=== PATIENT | male | born 2000 | race Caucasian/White ===

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

== ENCOUNTER 2018-06-16 12:23 | Emergency (ER) | payer BC ==
--- NOTE | 2018-06-16 12:57 | ER Document Report ---
ED Medical Screen (RME) - General Chief Complaint: Psych Problem Stated Complaint: PSYCH Time Seen by Provider: 06/16/18 12:52 Notes: 17 years old male with a history of depression and suicidal attempt, not taking any medications for 1 year, presents today with feeling depressed, living on a truck. No home. TRAVEL OUTSIDE OF THE [place] IN LAST 30 DAYS: No - Related Data Allergies/Adverse Reactions: No Known Allergies Allergy (Verified 06/16/18 12:30) Past Medical History Renal/ Medical History: Denies: Hx Peritoneal Dialysis Physical Exam - Vital signs Vitals: Temp Pulse Resp BP Pulse Ox 98.3 F 84 16 132/73 H 97 06/16/18 12:35 06/16/18 12:35 06/16/18 12:35 06/16/18 12:35 06/16/18 12:35 Course - Vital Signs Vital signs: Temp Pulse Resp BP Pulse Ox 98.3 F 84 16 132/73 H 97 06/16/18 12:35 06/16/18 12:35 06/16/18 12:35 06/16/18 12:35 06/16/18 12:35
[2018-06-16 13:54] LABS: ABSOLUTE LYMPHOCYTES (AUTO) 1.3 10^3/uL (0.5-4.7); ABSOLUTE MONOCYTES (AUTO) 0.6 10^3/uL (0.1-1.4); ABSOLUTE NEUT (AUTO) 6.8 10^3/uL (1.7-8.2); BASOPHILS % (AUTO) 0.2 % (0-2); EOSINOPHILS % (AUTO) 0.4 % (0-6); HEMATOCRIT 47.2 % (37.9-51.0); HEMOGLOBIN 16.4 g/dL (13.5-17.0); LYMPHOCYTES % (AUTO) 15.3 % (13-45); MEAN CORPUSCULAR HEMOGLOBIN 30.6 pg (27.0-33.4); MEAN CORPUSCULAR HGB CONC 34.7 g/dL (32.0-36.0); MEAN CORPUSCULAR VOLUME 88 fl (80-97); MONOCYTES % (AUTO) 7.2 % (3-13); PLATELET COUNT 263 10^3/uL (150-450); RED BLOOD COUNT 5.36 10^6/uL (4.35-5.55); RED CELL DISTRIBUTION WIDTH 12.8 % (11.5-14.0); SEGMENTED NEUTROPHILS % (AUTO) 76.9 % (42-78); TOTAL CELLS COUNTED % (AUTO) 100 %; WHITE BLOOD COUNT 8.8 10^3/uL (4.0-10.5)
[2018-06-16 14:02] LABS: APPEARANCE,URINE SLIGHTLY-CLOUDY; BILIRUBIN,URINE NEGATIVE (NEGATIVE); COLOR,URINE YELLOW; GLUCOSE, URINE NEGATIVE (NEGATIVE); KETONES,URINE NEGATIVE (NEGATIVE); LEUKOCYTE ESTERASE,URINE LARGE (NEGATIVE); NITRITE,URINE NEGATIVE (NEGATIVE); PROTEIN,URINE NEGATIVE (NEGATIVE); URINE SPECIFIC GRAVITY 1.014; UROBILINOGEN,URINE NEGATIVE mg/dL (<2.0)
[2018-06-16 14:12] LABS: ACETAMINOPHEN < 10 ug/mL (10-30); ALANINE AMINOTRANSFERASE 21 U/L (10-40); ALBUMIN 5.1 g/dL (3.7-5.6); ALCOHOL < 10 mg/dL (NONE DETECTED); ALKALINE PHOSPHATASE 64 U/L (65-260); ANION GAP 13 (5-19); ASPARTATE AMINO TRANSFERASE 21 U/L (10-45); BILIRUBIN,DIRECT 0.3 mg/dL (0.0-0.4); BILIRUBIN,TOTAL 1.9 mg/dL (0.2-1.3); BLOOD UREA NITROGEN 18 mg/dL (7-20); CALCIUM 10.5 mg/dL (8.4-10.2); CARBON DIOXIDE 29 mmol/L (22-30); CHLORIDE 103 mmol/L (98-107); GLUCOSE 99 mg/dL (75-110); POTASSIUM 4.7 mmol/L (3.6-5.0); SALICYLATE < 1.0 mg/dL (2.0-20.0); SODIUM 145.1 mmol/L (137-145); TOTAL PROTEIN 8.9 g/dL (6.3-8.2)
[2018-06-16 14:13] LABS: URINE AMPHETAMINES SCREEN NEGATIVE; URINE BARBITURATES SCREEN NEGATIVE; URINE BENZODIAZEPINES SCREEN NEGATIVE; URINE COCAINE SCREEN NEGATIVE; URINE MARIJUANA (THC) SCREEN UNCONFIRMED POSITIVE; URINE METHADONE SCREEN NEGATIVE; URINE PHENCYCLIDINE SCREEN NEGATIVE
--- NOTE | 2018-06-16 14:54 | PSYCHOLOGICAL NOTE ---
Psych Note - Psych Note Date seen by psych provider: 06/16/18 Time seen by psych provider: 13:40 Psych Note: Reason for consult: Depression Patient disclosed that he drove to [facility] for "mental health." He states he has depression anxiety and panic attacks. He states that his panic attacks caused him to be aggressive; "not physically but verbally." He states that he does not like treating others the way it does when he is feeling that way. He states that he is "unable to manage his feelings or cope." He reports this is been going on for many years. Patient confirms he is still homeless states that it has been about 6 months however did have a brief period of time where he had a job and he was provided a hotel at [place]. He states that he would like assistance on getting a medication and states he would be able to fill them and confirms he did take them as prescribed. Patient states he now has a job working with [employer]. He denies thoughts of harm to himself or others and confirms he does not have an outpatient mental health provider currently. He states the last time he was inpatient psychiatric treatment was before he was 16 approximately 2 years ago. Patient is alert and orientated to person, place, time and circumstance. Mood is euthymic with flat affect. Patient denies suicidal and homicidal ideation. Delusions are absent behaviors congruent with an intact reality based presentation i.e. organized and linear thought process. Eye contact was well- maintained. Conversational speech is within normal rate, tone and prosody. Intellectual abilities appear to be within the average range. Attention and concentration were good. Insight, judgment, impulse control are fair. Medication recommendations per [facility]'s contracted psychiatrist Dr. Raffi KULKARNI are as follows Zyprexa 5 mg twice daily Cogentin 1 mg daily Diagnosis: V60.0 (Z59.0) Homelessness 311 (F32.9) Unspecified Depressive Disorder, per history 301.7 (F60.2) Antisocial Personality Disorder, per history Impression\\plan: Patient is cleared from acute psychiatric services. This patient is known to clinician and department. Patient reports depression anxiety and panic attacks that results in being verbally aggressive. He reports that he does not want to treat others the way he has been. 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 He states he would like assistance on getting into outpatient mental health services and medication. He confirms he will take the medication as prescribed and is able to fill prescriptions. He denies any thoughts of self-harm or harming others. Patient was provided medication recommendation and resource list of local outpatient mental health providers to include mobile crisis. patient was also provided a local resource list of [facility] as he reports he does not know where they all are. Patient is recommended to follow-up with outpatient mental health services. Dr. Tejeda was consulted and the care management this patient; attending physicians in agreement with recommendations and disposition.
[2018-06-16] MEDS ORDERED: OLANZAPINE 5 MG TABLET PO ONE (15:12)
[2018-06-16] MEDS ORDERED: BENZTROPINE MESYLATE 1 MG TABLET PO ONE (15:12)
--- NOTE | 2018-06-16 15:12 | ER Document Report ---
ED Psych Disorder / Suicide <CECIL SHEETS - Last Filed: 06/16/18 15:39> - General TRAVEL OUTSIDE OF THE U[place] IN LAST 30 DAYS: No <TANIA PRECIADO - Last Filed: 06/16/18 19:11> - General Chief Complaint: Psych Problem Stated Complaint: PSYCH Time Seen by Provider: 06/16/18 12:52 Notes: Patient drove himself to the emergency department to be evaluated for depression , anxiety, panic attacks. When he is having panic attacks, he says he becomes very aggressive verbally, not physically. He has had this problem for years. Patient is currently homeless, living out of his car. He does have a job. Patient does not have a counselor for outpatient care. Is not on any current medications. Denies suicidal ideation and homicidal ideation. Patient was raised in [place] and graduated from high school there a couple of years ago. His father once lived here and that Michell ended up in [place]. Says he does not have a support system in [place] because his mother and his grand parents have told him that "he needs to figure it out". (TANIA PRECIADO) - Related Data Allergies/Adverse Reactions: No Known Allergies Allergy (Verified 06/16/18 12:30) Past Medical History - Social History Smoking Status: Current Every Day Smoker Chew tobacco use (# tins/day): No Frequency of alcohol use: Rare Drug Abuse: Marijuana Family History: Reviewed & Not Pertinent Patient has suicidal ideation: No Patient has homicidal ideation: No - Medical History Medical History: Negative Psychiatric Medical History: Reports: Hx Depression, Hx Personality Disorder <TANIA PRECIADO - Last Filed: 06/16/18 19:11> Review of Systems <CECIL SHEETS - Last Filed: 06/16/18 15:39> <TANIA PRECIADO - Last Filed: 06/16/18 19:11> - Review of Systems Notes: REVIEW OF SYSTEMS: CONSTITUTIONAL : Denies fever. EENT: Denies eye, ear, nose or mouth or throat pain or other symptoms. CARDIOVASCULAR: Denies chest pain. RESPIRATORY: Denies cough, chest congestion, or shortness of breath. GASTROINTESTINAL: Denies abdominal pain or nausea, vomiting, or diarrhea. GENITOURINARY: Denies difficulty or painful urinating, urinary frequency, blood in urine. MUSCULOSKELETAL: Denies back or neck pain. Denies joint pain or swelling. SKIN: Denies rash or skin lesions. NEUROLOGICAL: Denies LOC or altered mental status. Denies headache. Denies sensory loss or motor deficits. ALL OTHER SYSTEMS REVIEWED AND NEGATIVE. (TANIA PRECIADO) Physical Exam <CECIL SHEETS - Last Filed: 06/16/18 15:39> - Vital signs Interpretation: Normal <TANIA PRECIADO - Last Filed: 06/16/18 19:11> - Vital signs Vitals: Temp Pulse Resp BP Pulse Ox 98.3 F 84 16 132/73 H 97 06/16/18 12:35 06/16/18 12:35 06/16/18 12:35 06/16/18 12:35 06/16/18 12:35 Notes: PHYSICAL EXAMINATION: GENERAL: Well-appearing, in no acute distress. HEAD: Atraumatic, normocephalic. EYES: Pupils equal round and reactive to light, extraocular movements intact. NECK: Normal range of motion, supple. LUNGS: Breath sounds clear and equal bilaterally. HEART: Regular rate and rhythm without murmurs. ABDOMEN: Soft, nontender. No guarding or rebound. No masses. BACK: No tenderness throughout entire back. EXTREMITIES: Normal range of motion without pain. NEUROLOGICAL: Normal speech, normal gait. Normal sensory, motor, and reflex exams. Awake, alert, and oriented x3. Cranial nerves normal. PSYCH: Quiet. Seems to be somewhat depressed. SKIN: Warm, dry, no rashes. (TANIA PRECIADO) Course - Laboratory Result Diagrams: 06/16/18 13:20 06/16/18 13:20 <CECIL SHEETS - Last Filed: 06/16/18 15:39> - Laboratory Result Diagrams: 06/16/18 13:20 06/16/18 13:20 <TANIA PRECIADO - Last Filed: 06/16/18 19:11> - Vital Signs Vital signs: Temp Pulse Resp BP Pulse Ox 98.1 F 75 20 120/68 99 06/16/18 15:59 06/16/18 15:59 06/16/18 15:59 06/16/18 15:59 06/16/18 15:59 - Laboratory Laboratory results interpreted by me: 06/16/18 06/16/18 13:20 13:20 Sodium 145.1 H Calcium 10.5 H Total Bilirubin 1.9 H Alkaline Phosphatase 64 L Total Protein 8.9 H Ur Leukocyte Esterase LARGE H Salicylates < 1.0 L Acetaminophen < 10 L Discharge <CECIL SHEETS - Last Filed: 06/16/18 15:39> <TANIA PRECIADO - Last Filed: 06/16/18 19:11> - Discharge Clinical Impression: Depression Qualifiers: Depression Type: unspecified Qualified Code(s): F32.9 - Major depressive disorder, single episode, unspecified Condition: Stable Disposition: HOME, SELF-CARE Additional Instructions: You have been evaluated by both medical and behavioral health teams have been deemed appropriate for discharge. You have been provided prescriptions for Zyprexa 5 mg twice daily and Cogentin 1 mg daily; please take as directed. You are recommended to follow-up with outpatient mental health services. You have been provided in resource list of local providers in addition to the homeless packet which includes food [facility]. DEPRESSION: Your evaluation reveals that you have mental depression. While symptoms may be vague, they often include disturbance of sleep, fatigue, loss of appetite , and general loss of interest in life. While depression may be a side effect of drugs, or a reaction to a major change in your life, many cases have no known cause. If depression is acute, and related to a major loss in your life, you can expect it to clear completely with time. If you have been depressed a long time , are prone to repeated bouts of depression or low mood, or have been thinking of suicide, get help. Depression can be treated with anti-depressant medication and counselling. Long-term depression will often take a few weeks to clear, even with appropriate medication. Follow-up care is important. FOLLOW-UP CARE: If you experience worsening or a significant change in your symptoms, notify the physician immediately or return to the Emergency Department at any time for re-evaluation. Prescriptions: Benztropine Mesylate [Cogentin 1 mg Tablet] 1 mg PO DAILY #7 tablet Olanzapine [Zyprexa 5 mg Tablet] 5 mg PO BID #14 tablet Referrals: [facility] [Outside] - Follow up as needed [facility] [Outside] - Follow up in 3-5 days
[2018-06-16 16:02] VITALS: BP 120/68
--- NOTE | 2018-06-16 18:57 | EKG REPORT ---
SEVERITY:- BORDERLINE ECG - SINUS RHYTHM INFERIOR Q WAVES, PROBABLY NORMAL VARIATION : Confirmed by: John Goldman MD 16-Jun-2018 18:56:48
== END 2018-06-16 16:05 | disposition home or self-care (01) ==
LOC: ER 12:23
DX: F32.9 Major depressive disorder, single episode, unspecified (principal); F60.2 Antisocial personality disorder; Z59.0 Homelessness; F17.200 Nicotine dependence, unspecified, uncomplicated
CPT/HCPCS: 36415; 80053; 80307; 81001; 85025; 93005; 93010; 99285